=== PATIENT | female | born 1970 | race Caucasian/White ===

== ENCOUNTER 2022-08-18 18:56 | Emergency (ER) | payer OTHER ==
[~2022-08-18] VITALS: Ht 162.6 cm; Wt 65.8 kg
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
[2022-08-18 19:13] VITALS: BP_SYST 134
--- NOTE | 2022-08-18 19:29 | NUR ---
RIGHT PINKY LACERATION CLEANSED AND STICHED BY MD AT THIS TIME, PATIENT DENIES PAIN AT THIS TIME
--- NOTE | 2022-08-18 19:30 | NUR ---
TECH AT BEDSIDE FOR FOR WOUND CARE
[2022-08-18] MEDS ORDERED: BACITRACIN 1 GM OINT TP ONE ×2 (19:34→19:45)
[2022-08-18 19:44] VITALS: BP_SYST 137
--- NOTE | 2022-08-18 19:47 | NUR ---
Patient given written and verbal discharge instructions and verbalizes understanding. ER MD discussed with patient the results and treatment provided. Patient in stable condition. ID arm band removed. PATIENT INSTRUCTED TO FOLLOW UP IN TWO DAYS FOR A WOUND CHECK AND IN 1 WEEK FOR SUTURE REMOVAL. Rx of given. Patient educated on pain management and to follow up with PMD. Pain Scale O/10. Opportunity for questions provided and answered. Medication side effect fact sheet provided.
== END 2022-08-18 19:44 | disposition home or self-care (01) ==
LOC: SED 18:56
DX: S61.216A Laceration without foreign body of right little finger without damage to nail, initial encounter (principal); Z79.899 Other long term (current) drug therapy; W26.8XXA Contact with other sharp object(s), not elsewhere classified, initial encounter; Y93.89 Activity, other specified; Y92.89 Other specified places as the place of occurrence of the external cause; Y99.8 Other external cause status
CPT/HCPCS: 99282